=== PATIENT | female | born 1990 | race Two or more races ===

== ENCOUNTER 2018-06-21 19:38 | Observation (INO) | payer MEDICAID ==
[~2018-06-21] VITALS: Ht 160 cm; Wt 127.0 kg
[2018-06-21] MEDS ORDERED: ALBU6.7H9 INH (20:45)
[2018-06-21] MEDS ORDERED: PNV1TABL50 MT (20:45)
[2018-06-21] MEDS: LACTATED RINGERS 1,000 ML IV SCH ×2 (20:46→21:37)
[2018-06-21 20:49] LABS: COLOR URINE YELLOW (YELLOW); KETONES URINE NEGATIVE (NEGATIVE); LEUKOCYTE ESTERASE URINE TRACE (NEGATIVE); NITRITE URINE NEGATIVE (NEGATIVE); OCCULT BLOOD URINE NEGATIVE (NEGATIVE); PH URINE 5.5 (4.5-8.0); PROTEIN URINE NEGATIVE (NEGATIVE); SPECIFIC GRAVITY URINE 1.013 (1.005-1.030); UROBILINOGEN URINE 0.2 E.U./dL (0.2-1.0)
[2018-06-21 20:58] LABS: CLARITY URINE SLIGHTLY HAZY (CLEAR)
[2018-06-21] MEDS ORDERED: CEFAZOLIN 2,000 MG in DEXT 5% WATER 100 ML IV NR (21:30)
== END 2018-06-21 22:10 | disposition home or self-care (01) ==
LOC: INTOOBSV 19:38 → 8 EST LDRP 19:38
PROVIDERS: ADMIT Obstetrics & Gynecology; ATTEND Obstetrics & Gynecology
DX: O62.9 Abnormality of forces of labor, unspecified (principal); Z3A.31 31 weeks gestation of pregnancy
CPT/HCPCS: 81003; 82731; 96365; 99281; G0378; J0690; J7060; 96360; 96361